=== PATIENT | female | born 1960 | race Caucasian/White ===

== ENCOUNTER 2025-01-17 13:54 | Emergency (ER) | payer OTHER ==
[~2025-01-17] VITALS: Ht 170.1 cm; Wt 70.3 kg
[~2025-01-17 13:54] MED LIST: ACULAR 3 ML3 M1 OP; ACYCLOVIR800 MG PO; AMBIEN10 M1; FLUOXETINE40 MG; MOTRIN800 MG PO; SYNTHROID0.125 MG; TOBREX OPHTH S2.5 ML OPH; TRAMADOL HCL50 MG PO; VICODIN 5/500 505 MG PO
[2025-01-17] MEDS ORDERED: LISSAMINE GREEN 1.5 MG STRIP OP ONE (14:10)
[2025-01-17] MEDS ORDERED: Polymyxin B Sulfate/Trimetho 10 ML BOT OPH ONE (14:15)
== END 2025-01-17 14:11 | disposition home or self-care (01) ==
LOC: ED 13:54
DX: S05.02XA Injury of conjunctiva and corneal abrasion without foreign body, left eye, initial encounter (principal); Z79.899 Other long term (current) drug therapy; W22.8XXA Striking against or struck by other objects, initial encounter; Y93.89 Activity, other specified; Y92.89 Other specified places as the place of occurrence of the external cause; Y99.8 Other external cause status